=== PATIENT | male | born 1980 | race Caucasian/White ===

== ENCOUNTER 2022-03-06 05:37 | Emergency (ER) | payer BC ==
[2022-03-06 06:32] LABS: CARBON DIOXIDE,CO2 23.6 mmol/L (21.0-32.0); POTASSIUM,K 3.7 mmol/L (3.5-5.1)
[2022-03-06] MEDS ORDERED: Azithromycin 250 MG Tab PO ONE (11:06)
[2022-03-06] MEDS ORDERED: Iopamidol 755 MG/ML 500 ML Multipack Bottle IVPUSH STA (12:52)
== END 2022-03-06 12:16 | disposition home or self-care (01) ==
LOC: MW.ED 05:37
DX: R06.02 Shortness of breath (principal); I10 Essential (primary) hypertension; R05.9 Cough, unspecified; Z88.8 Allergy status to other drugs, medicaments and biological substances; Z79.899 Other long term (current) drug therapy; Z20.822 Contact with and (suspected) exposure to COVID-19
CPT/HCPCS: 36415; 71045; 71275; 74175; 80053; 83605; 83735; 83880; 84484; 85025; 85610; 87635; 93005; 99285; A9270; Q9967; U0002